=== PATIENT | female | born 1970 | race African-American/Black ===

== ENCOUNTER 2018-02-04 20:20 | Emergency (ER) | payer OTHER ==
[2018-02-04 20:27] VITALS: BP 126/83; PULSE 92; TEMP 97.9; BMI 31.6
--- NOTE | 2018-02-04 21:44 | PDOC ---
History of Present Illness <Kellie Rudolph - Last Filed: 02/04/18 22:11> - General History Source: Patient, Spouse, Old Records Exam Limitations: No Limitations - History of Present Illness Initial Comments: 02/04/18 22:15 Patient is a 47 year old female with no significant past medical history who presents to the ED with complaints of left ear pain that began yesterday. Patient reports getting a helix piercing 6 months ago, but states earlier this week the earring retracted into the wound causing minor swelling and pain. She reports pain gradually increased overtime until it became unbearable yesterday evening, stating she was not even able to touch it, prompting her to come into the ED for further evaluation. Patient left ear pain is a constant throbbing pain. Denies chest pain, Sob. Denies fevers, chills. Denies nausea, vomiting. Denies contact with sick individuals, out of state travelling. Denies previous hx of skin infecitons or resistant organism infections. Denies any other symptoms. Allergies: None Social history: Lives with Surgical history: None PMD: None 02/04/18 23:14 <Du Mckenzie - Last Filed: 02/04/18 23:18> - General Chief Complaint: Pain, Acute Stated Complaint: SWELLING TO LEFT EAR/EARRING Time Seen by Provider: 02/04/18 21:04 Past History - Past Medical History COPD: No Other medical history: DENIES - Suicide/Smoking/Psychosocial Hx Smoking History: Never smoked Have you smoked in the past 12 months: No Information on smoking cessation initiated: No Hx Alcohol Use: No Drug/Substance Use Hx: No Substance Use Type: None <Kellie Rudolph - Last Filed: 02/04/18 22:11> <Du Mckenzie - Last Filed: 02/04/18 23:18> - Past Medical History Allergies/Adverse Reactions: Allergies Allergy/AdvReac Type Severity Reaction Status Date / Time No Known Allergies Allergy Verified 02/04/18 20:22 Home Medications: Ambulatory Orders Amox-Tr/K Cl [Augmentin - 875Mg Tablet] 1 tab PO BID #14 tablet 02/04/18 Review of Systems - Review of Systems Able to Perform ROS?: Yes Comments:: 02/04/18 22:15 GENERAL/CONSTITUTIONAL: No fever or chills. No weakness. HEAD, EYES, EARS, NOSE AND THROAT: +Left ear pain. No change in vision. No ear discharge. No sore throat. CARDIOVASCULAR: No chest pain or shortness of breath. RESPIRATORY: No cough, wheezing, or hemoptysis. GASTROINTESTINAL: No nausea, vomiting, diarrhea or constipation. GENITOURINARY: No dysuria, frequency, or change in urination. MUSCULOSKELETAL: No joint or muscle swelling or pain. No neck or back pain. SKIN: No rash NEUROLOGIC: No headache, vertigo, loss of consciousness, or change in strength/ sensation. ENDOCRINE: No increased thirst. No abnormal weight change. HEMATOLOGIC/LYMPHATIC: No anemia, easy bleeding, or history of blood clots. ALLERGIC/IMMUNOLOGIC: No hives or skin allergy. <Du Mckenzie - Last Filed: 02/04/18 23:18> *Physical Exam - Vital Signs Last Vital Signs Temp Pulse Resp BP Pulse Ox 97.9 F 92 H 18 126/83 100 02/04/18 20:23 02/04/18 20:23 02/04/18 20:23 02/04/18 20:23 02/04/18 20:23 <Kellie Rudolph - Last Filed: 02/04/18 22:11> - Vital Signs Last Vital Signs Temp Pulse Resp BP Pulse Ox 97.9 F 92 H 18 126/83 100 02/04/18 20:23 02/04/18 20:23 02/04/18 20:23 02/04/18 20:23 02/04/18 20:23 - Physical Exam Comments: 02/04/18 22:15 GENERAL: Awake, alert, and fully oriented, in no acute distress HEAD: No signs of trauma EYES: PERRLA, EOMI, sclera anicteric, conjunctiva clear ENT: +Tenderness of the mid helix of the left ear. +Left ear edema. +Mild erythema. +Impacted wax on inner ear canal. +TM's not visualized. nares patent, oropharynx clear without exudates. Moist mucosa NECK: Normal ROM, supple, no lymphadenopathy, JVD, or masses LUNGS: Breath sounds equal, clear to auscultation bilaterally. No wheezes, and no crackles HEART: Regular rate and rhythm, normal S1 and S2, no murmurs, rubs or gallops ABDOMEN: Soft, nontender, normoactive bowel sounds. No guarding, no rebound. No masses EXTREMITIES: Normal range of motion, no edema. No clubbing or cyanosis. No cords, erythema, or tenderness NEUROLOGICAL: Cranial nerves II through XII grossly intact. Normal speech, normal gait SKIN: Warm, Dry, normal turgor, no rashes or lesions noted. <Du Mckenzie - Last Filed: 02/04/18 23:18> *DC/Admit/Observation/Transfer <Kellie Rudolph - Last Filed: 02/04/18 22:11> - Attestations Scribe Attestion: 02/04/18 22:15 Documentation prepared by Du Mckenzie, acting as medical voucher clerk for Kellie Rudolph MD. <Du Mckenzie - Last Filed: 02/04/18 23:18> Diagnosis at time of Disposition: Cellulitis of left external ear - Discharge Dispostion Disposition: HOME Condition at time of disposition: Stable - Prescriptions Prescriptions: Amox-Tr/K Cl [Augmentin - 875Mg Tablet] 1 tab PO BID #14 tablet - Patient Instructions Printed Discharge Instructions: Cellulitis Additional Instructions: Keep head elevated tonight Warm compresses to affected area for 15 minutes at least 3-4 times a day can use Neosporin or bacitracin ointment on wound surface Augmentin 875/125 twice a day for one week; take with food Ibuprofen/naproxen/acetaminophen as needed for pain Follow-up with your doctor within 2 days Return to ER if you have worsening pain/swelling/fever or active discharge from wounds
[2018-02-04] MEDS ORDERED: AMOX TR/POT CLAV 875MG/125MG TABLETS (FP) PO ONE (22:11)
[2018-02-04] MEDS ORDERED: AMOX TR/POT CLAV 875MG/125MG TABLETS (FP) ONE (22:12)
== END 2018-02-04 22:17 | disposition home or self-care (01) ==
LOC: FER 20:20
DX: H60.12 Cellulitis of left external ear (principal)
CPT/HCPCS: 87070; 87077; 87205; 99281-25

== ENCOUNTER 2019-02-28 10:46 | Emergency (ER) | payer OTHER ==
[2019-02-28 10:54] VITALS: BP 139/85; PULSE 95; BMI 29.3
--- NOTE | 2019-02-28 11:25 | PDOC ---
History of Present Illness - General Chief Complaint: Injury Stated Complaint: LT. ANKLE PAIN Time Seen by Provider: 02/28/19 11:22 History Source: Patient - History of Present Illness Initial Comments: 02/28/19 12:51 Chief complaint: Ankle injury Patient is a 48-year-old healthy female with history of bilateral fractured ankles who states she twisted her left ankle yesterday and it is painful to walk. She took Motrin prior to coming to the ER. Patient is ambulatory. GENERAL/CONSTITUTIONAL: No fever, weakness. dizziness HEAD, EYES, EARS, NOSE AND THROAT: No change in vision. No ear pain or discharge. No sore throat. CARDIOVASCULAR: No chest pain RESPIRATORY: No shortness of breath or cough GASTROINTESTINAL: No pain, nausea, vomiting, diarrhea or constipation GENITOURINARY: No dysuria MUSCULOSKELETAL: + left ankle, No neck or back pain SKIN: No rash NEUROLOGIC: No headache, vertigo, loss of consciousness, or loss of sensation. GENERAL: The patient is awake, alert, and fully oriented, in no acute distress. HEAD: Normal with no signs of trauma. EYES: Pupils equal, round and reactive to light, sclera anicteric, conjunctiva clear. ENT: pharynx: no erythema, no exudate, uvula midline NECK: supple CHEST: clear, nontender, rr ABD: soft, nontender BACK: no tenderness or signs of injury EXTREMITIES: Left ankle: No gross swelling, +tenderness, range of motion, no tenderness to the foot, neurovascular intact. Rest of extremities, normal range of motion, no edema. NEUROLOGICAL: Normal speech, normal gait. SKIN: Warm, Dry Past History - Past Medical History Allergies/Adverse Reactions: Allergies Allergy/AdvReac Type Severity Reaction Status Date / Time No Known Allergies Allergy Verified 02/28/19 10:51 Home Medications: Ambulatory Orders NK [No Known Home Medication] 02/28/19 Asthma: Yes COPD: No - Immunization History Immunization Up to Date: Yes - Suicide/Smoking/Psychosocial Hx Smoking History: Never smoked Have you smoked in the past 12 months: No Information on smoking cessation initiated: No Hx Alcohol Use: No Drug/Substance Use Hx: No Substance Use Type: None *Physical Exam - Vital Signs Last Vital Signs Temp Pulse Resp BP Pulse Ox 985.5 F H 95 H 17 139/85 99 02/28/19 10:52 02/28/19 10:52 02/28/19 10:52 02/28/19 10:52 02/28/19 10:52 Procedures - Splinting Splint Location: Left: Ankle Pre-Proc Neuro Vasc Exam: normal Pre-Made Type: aircast Post-Proc Neuro Vasc Exam: normal Medical Decision Making - Medical Decision Making 02/28/19 12:56 Left ankle x-ray is negative. Patient is ambulatory. Patient offered crutches, does not need them. Aircast placed Discussed issues, findings, results, applicable medications and treatments and follow-up. All these were understood and all questions were answered *DC/Admit/Observation/Transfer Diagnosis at time of Disposition: Left ankle injury Qualifiers: Encounter type: initial encounter Qualified Code(s): S99.912A - Unspecified injury of left ankle, initial encounter - Discharge Dispostion Disposition: HOME Condition at time of disposition: Stable Decision to Admit order: No - Referrals Referrals: Tommy Calles MD [Primary Care Provider] - - Patient Instructions Printed Discharge Instructions: Ankle Sprain Additional Instructions: Elevate, wear splint You can apply ice for 20 minutes every 2 hours for the next 2 days Motrin 600 mg every 6 hours for pain. Call the orthopedist tomorrow - Post Discharge Activity
[2019-02-28 12:04] VITALS: TEMP 98.5
== END 2019-02-28 11:45 | disposition home or self-care (01) ==
LOC: JERFT 10:46
PROC: 2W3RX1Z Immobilization of Left Lower Leg using Splint (ICD-10-PCS; principal; 2019-02-28)
DX: S93.492A Sprain of other ligament of left ankle, initial encounter (principal); X50.1XXA Overexertion from prolonged static or awkward postures, initial encounter; Y93.89 Activity, other specified; Y92.89 Other specified places as the place of occurrence of the external cause; Y99.8 Other external cause status
CPT/HCPCS: 73610-TC-LT-FY; 73630-TC-LT; 99281-25